=== PATIENT | male | born 1970 | race Caucasian/White ===

== ENCOUNTER 2023-03-01 21:07 | Emergency (ER) | payer OTHER, SELFPAY ==
[2023-03-01 21:22] VITALS: BP 169/95; PULSE 86; RESP 18; TEMP 37.5; O2SAT 95; BMI 48.5
--- NOTE | 2023-03-01 23:18 | ED.GENADULT ---
HPI - General Adult General Chief complaint: Wound/Laceration Stated complaint: right finger laceration Time Seen by Provider: 03/01/23 22:48 Source: patient Mode of arrival: ambulatory Limitations: no limitations History of Present Illness HPI narrative: 52 year old male presents to the emergency department with a laceration on the right second digit distal to the PIP joint. Patient reports his dogs ran out of the house and he tried to contain them, but he scraped his hand on the fence. Laceration is linear and approximately 3 cm in length. Patient is unsure of the date of his last tetanus booster. Related Data Allergies Allergy/AdvReac Type Severity Reaction Status Date / Time No Known Allergies Allergy Verified 03/01/23 23:21 [facility] Social History Social History Advance Directives: No Advance Directives Information Provided: No Physical Exam ED Vital Signs: Vital Signs - 24 hr 03/01/23 21:22 Temperature 99.5 F Pulse Rate 86 Respiratory Rate 18 Blood Pressure 169/95 H Pulse Oximetry 95 Oxygen Delivery Method Room Air BMI result Body Mass Index 48.5 Skin Trauma: laceration (3cm Curvlinear laceration on the right second digit distal to the PIP joint) Extrem Right upper extremity: full ROM and normal capillary refill Medications Administered Discontinued Medications Generic Name Dose Route Start Last Admin Trade Name Freq PRN Reason Stop Dose Admin Diphtheria/Tetanus/Acell Pertussis 0.5 ml 03/01/23 23:21 03/01/23 23:39 Diphth,Pertus(Acell),Tet Adult 0.5 Ml Syringe IM 03/01/23 23:22 0.5 ml .ONCE ONE Administration Lidocaine HCl 4 ml 03/01/23 23:21 03/01/23 23:40 Lidocaine Hcl 2 % 20 Ml Vial INFILTRATI 03/01/23 23:22 4 ml ONCE ONE Administration Procedures Laceration Laceration 1: Site: hand (Right 2nd finger) Side (If applicable): right Size (cm): 3 Description: linear, flap and clean Depth: simple, single layer Local Anesthetic: lidocaine 2% Amount of anesthesia used (mL): 4 Pre-repair: wound explored Skin layer closed with: nylon Size (cm): 5-0 Number of sutures: 6 Technique: simple, interrupted Medical Decision Making Medical Decision Making MDM Narrative: Patient has a small laceration to the right 2nd finger on the dorsal surface. He is able to fully flex and extend the finger. No concern for tendon injury. See procedure note for wound repair, tetanus was updated Differential Diagnosis Differential Diagnoses: The differential diagnosis associated with the presentation includes Laceration Skin tear Puncture Abrasion Discharge Plan Discharge Clinical Impression: Laceration of right index finger Patient Disposition: Home, Self-Care Instructions: Finger Laceration (ED) Additional Instructions: You had 6 sutures placed today. These can be removed in 7-10 days. Keep the area clean and dry Your tetanus was updated today and is good for 5-10 years
[2023-03-01] MEDS: Diphth,Pertus(ACell),Tet Adult 0.5 ML SYRINGE IM (23:39)
[2023-03-01] MEDS: Lidocaine HCl 2 % 20 ML VIAL 4 ML INFILTRATI (23:40)
== END 2023-03-02 01:24 | disposition home or self-care (01) ==
PROVIDERS: Emergency Provider Emergency Medicine; PCP Radiology Vascular & Interventional Radiology
DX: S61.210A Laceration without foreign body of right index finger without damage to nail, initial encounter (principal); W26.8XXA Contact with other sharp object(s), not elsewhere classified, initial encounter; Y93.89 Activity, other specified; Y92.9 Unspecified place or not applicable; Y99.9 Unspecified external cause status
CPT/HCPCS: 12002; 90471; 90715; 99282; 99284